=== PATIENT | female | born 1985 | race Caucasian/White ===

== ENCOUNTER 2022-03-17 01:06 | Observation (INO) ==
[2022-03-17] MEDS ORDERED: Naloxone 0.4 MG/ML INJ IVP PRN (04:05)
[2022-03-17] MEDS ORDERED: Ondansetron 4 MG/2 ML VIAL IVP PRN (04:05)
[2022-03-17] MEDS ORDERED: *HR* Promethazine 25 MG/ML VIAL IM PRN (04:05)
[2022-03-17] MEDS ORDERED: Melatonin 3 MG TABLET PO PRN (04:05)
[2022-03-17] MEDS ORDERED: Ringers Solution, Lactated 1,000 ML IVC ONE (04:08)
[2022-03-17] MEDS ORDERED: Ringers Solution, Lactated 1,000 ML IVC SCH ×2 (04:15→10:05)
[2022-03-17] MEDS ORDERED: Prochlorperazine 10 MG/2 ML VIAL IVP PRN (05:01)
[2022-03-17 05:20] LABS: VBG HCO3 19 mEq/L (21-27); VBG PCO2 32 mmHg (41-51); VBG PH 7.38 pH Units (7.32-7.42); VBG PO2 133 mmHg (25-50)
[2022-03-17 05:28] LABS: Basophils % 0.3 %; Hematocrit 38.5 % (35.3-44.9); Hemoglobin 12.4 g/dL (11.5-15.4); Immature Granulocytes % 0.4 % (0-4); Lymphocytes % 6.8 %; Mean Corpuscular HGB Conc 32.2 g/dL (31.6-35.5); Mean Corpuscular Hemoglobin 28.1 pg (28.0-33.3); Mean Corpuscular Volume 87.3 fL (83.0-100.0); Mean Platelet Volume 9.8 fL (9.4-12.4); Monocytes # 0.8 K/mcL (0.0-1.3); Monocytes % 5.6 %; Neutrophils # 12.5 K/mcL (1.6-8.9); Platelet Count 378 K/mcL (140-400); Red Blood Count 4.41 M/mcL (3.82-4.97); Red Cell Distribution Width 14.4 % (11.5-14.5); Segmented Neutrophils % 86.9 %; White Blood Count 14.4 K/mcL (4.3-11.1)
[2022-03-17 05:40] LABS: Calcium 8.4 mg/dL (8.6-10.3); Potassium 4.2 mEq/L (3.5-5.1)
[2022-03-17] MEDS: *HR* Heparin 5,000 UNIT/ML VIAL SQ SCH ×2 (05:43→14:27)
[2022-03-17 05:57] LABS: Protein/Creatinine Ratio,Urine 0.37 mg/mg (0.00-0.20); Sodium, Urine 67.5 mEq/L
[2022-03-17 06:03] LABS: Bilirubin,Urine Negative (Negative); Blood,Urine Negative (Negative); Clarity,Urine Turbid (Clear); Color,Urine Yellow (Yellow); Glucose,Urine (UA) Normal (Normal); Hyaline Casts,Urine Many per lpf (None Seen); Ketones,Urine Trace mg/dL (Negative); Leukocyte Esterase,Urine Negative (Negative); Mucus,Urine Many per lpf (None-Few); Nitrite,Urine Negative (Negative); PH,Urine 5.5 pH Units (5.0-8.0); Protein,Urine 70 mg/dL (Neg-Trace); RBC,Urine 0-3 per hpf (0-3); Specific Gravity,Urine 1.026 (1.010-1.025); Squamous Epithelial Cell,Urine Moderate per hpf (None-Few); Urobilinogen,Urine Normal (Normal)
[2022-03-17] MEDS: Pantoprazole 40 MG VIAL IVP SCH (09:05)
[2022-03-17] MEDS: metroNIDAZOLE 500 MG TABLET PO SCH ×3 (09:05→21:04)
[2022-03-17] MEDS: Acetaminophen 325 MG TABLET PO PRN (14:27)
[2022-03-17] MEDS: Sucralfate 1 GM TABLET PO SCH (21:04)
[2022-03-18] MEDS: *HR* Heparin 5,000 UNIT/ML VIAL SQ SCH ×2 (00:11→08:39)
[2022-03-18] MEDS: Acetaminophen 325 MG TABLET PO PRN (01:37)
[2022-03-18] MEDS ORDERED: SUMAtriptan succinate 25 MG TABLET PO ONE (01:48)
[2022-03-18 07:05] VITALS: BP 138/79; PULSE 79; TEMP 97.8; O2SAT 97
[2022-03-18] MEDS: metroNIDAZOLE 500 MG TABLET PO SCH (08:40)
[2022-03-18] MEDS: Sucralfate 1 GM TABLET PO SCH (08:40)
[2022-03-18] MEDS: Pantoprazole 40 MG VIAL IVP SCH (08:41)
[2022-03-18] MEDS ORDERED: Lisinopril-HCTZ 20-12.5mg TABLET PO SCH (09:00)
== END 2022-03-18 11:50 | disposition home or self-care (01) ==
LOC: 3ANU → SUATTDRO 03:28
PROVIDERS: ADMIT Internal Medicine; ATTEND Internal Medicine